=== PATIENT | male | born 1955 | race Caucasian/White ===

== ENCOUNTER 2019-07-13 15:17 | Emergency (ER) | payer OTHER ==
--- NOTE | 2019-07-13 15:33 | ED Physician Documentation ---
Chest Pain - HISTORIAN Historian: patient - HPI Stated Complaint: chest pain Chief Complaint: Chest Pain Additional Information: Patient presents to ED with sudden onset of chest pain after pulling on tie-down strap. Patient states he broke a tie-down strap holding down a cookie breaker because it would not come loose. After breaking the strap he began to have chest pain across his chest, 6/10, dullache, radiating down both arms. He states the pain last about 15-20 minutes and resolved without intervention. He states the pain returned about an hour later so he came to the ER. He is now chest pain free. He denies shortness of breath, nausea/vomiting or diaphoresis. He has a history of COPD, smoking and ascending aortic aneurysm (currently under surveillance, last CT scan May 2019). He also reports his voice has been raspy and deep for the past 2 months. Onset: hours (2) Timing: sudden onset Duration: waxing, waning Last known Well Date: 07/13/19 Last Known Well Time: 14:00 Context: exertion Severity: moderate Quality: dull, aching Chest Pain Radiation: arms Chest Pain Signs/Symptoms: denies: nausea, vomiting, diaphoresis, dizziness Worsened By: nothing Relieved By: nothing - ROS CONST: none MS/LYMPH: none GI/: none EYES/ENT: none SKIN/ENDO: none NEURO/PSYCH: none - PAST HX [place] risk factors: hypertension, other (aortic aneurysm ) DVT/PE Risk Factors: none TAD/AAA risk factors: none Neuro deficit: none GI disease: none Lung disease: COPD Surgeries/Procedures: none Allergies/Adverse Reactions: Allergies Allergy/AdvReac Type Severity Reaction Status Date / Time Penicillins Allergy Severe edema Verified 07/13/19 15:35 propoxyphene napsylate Allergy Severe hypertensive Verified 07/13/19 15:35 [From Darvocet-N 100] crisis amoxicillin Allergy Verified 07/13/19 15:35 Home Medications: Ambulatory Orders Medication Instructions Recorded Albuterol Sulfate [Proair Hfa] 8.5 gm IH BID 04/01/13 Atenolol [Tenormin] 25 mg PO DAILY 08/23/15 Gabapentin [Neurontin] 300 mg PO TID 08/23/15 Levofloxacin [Levaquin] 750 mg PO DAILY #5 tablet 07/13/19 - SOCIAL HX Smoking History: cigarettes, greater than 1 pack/day Alcohol Use: none Drug Use: none - FAMILY HX Family HX: none - VITAL SIGNS Vital Signs: Vital Signs Temp Pulse Resp BP Pulse Ox 135/81 08/23/15 19:42 - REVIEWED ASSESSMENTS Nursing Assessment Reviewed: Yes Vitals Reviewed: Yes Progress - EKG/XRAY/CT EKG: NSR (1528 normal sinus rhythm [address] elevation) ED Results Lab/Radiology - Radiology Radiology Impressions: Report Submission Date: Jul 13, 2019 4:37:30 PM CDT Patient Study Name: MARKOS ENRIQUEZ Date: Jul 13, 2019 3:25:11 PM CDT Modality Type: DX Gender: M Description: CHEST 1VIEW : 55 Institution: [facility] Physician: QUINCY MCCALL Exam: AP chest. History: Chest pain. No previous studies are available for comparison. Lung hernandez are well aerated without alesha consolidation or effusion. Right basilar infiltrates are noted. No pleural effusions are seen. Heart and mediastinal contour are normal. Impression: Right basilar infiltrate. Electronically signed on Jul 13, 2019 4:37:30 PM CDT by: Luis A Mullins - Orders Orders: ED Orders Category Date Time Status CHEST 1VIEW [RAD] Stat Exams 07/13/19 Ordered CBC/PLATELET/DIFF Stat Lab 07/13/19 15:29 Uncollected CMP [CMP] Stat Lab 07/13/19 15:30 Uncollected TROPONIN I Stat Lab 07/13/19 Uncollected Chest Pain Physical Exam - EXAM General Appearance: no acute distress, alert EENT: STERLING Neck: nml inspection Respiratory: no resp. distress, chest non-tender, wheezes (scattered occasional wheeze bilaterally) CVS: reg. rate & rhythm, no murmur Abdomen: soft, normal bowel sounds Skin: warm/dry, normal color Extremities: non-tender, normal range of motion, no evidence of injury Neuro: oriented X3, CN's nml as tested, motor nml, mood/affect nml Discharge Clincal Impression: Right lower lobe pneumonia Qualifiers: Pneumonia type: due to other aerobic Gram-negative bacteria Qualified Code(s): J15.6 - Pneumonia due to other Gram-negative bacteria Prescriptions: Levofloxacin [Levaquin] 750 mg PO DAILY #5 tablet Referrals: Jalen Calles [Primary Care Provider] - 2 Days Additional Instructions: 1. Take antibiotics until gone. 2. Follow up with PCP within 1 week. Repeat chest xray, check kidney function. Discuss CT Neck to evaluate voice changes. 3. Smoking cessation is recommended 4. Return to the ER for new or worsening symptoms Condition: Stable Disposition: 01 HOME, SELF-CARE Decision to Admit: NO Date of Decison to Admit: 07/13/19 Decision Time: 16:47
[2019-07-13 15:45] LABS: NEUTROPHILS # 8.6 # k/uL (1.4-7.7)
[2019-07-13 15:57] LABS: eGFR (Non-African) 51
--- NOTE | 2019-07-13 16:53 | Diagnostic Imaging Report ---
QUINCY MCCALL [facility] [address] [facility].[address] [id number] Report Submission Date: Jul 13, 2019 4:37:30 PM CDT Patient Study Name: MARKOS ENRIQUEZ Date: Jul 13, 2019 3:25:11 PM CDT Modality Type: DX Gender: M Description: CHEST 1VIEW : 55 Institution: [facility] Physician: QUINCY MCCALL Exam: AP chest. History: Chest pain. No previous studies are available for comparison. Lung hernandez are well aerated without alesha consolidation or effusion. Right basilar infiltrates are noted. No pleural effusions are seen. Heart and mediastinal contour are normal. Impression: Right basilar infiltrate. Electronically signed on Jul 13, 2019 4:37:30 PM CDT by: Luis A SCHREIBER
[2019-07-13 17:21] VITALS: BP 137/82
== END 2019-07-13 17:00 | disposition home or self-care (01) ==
LOC: ED 15:17
DX: J15.8 Pneumonia due to other specified bacteria (principal)
CPT/HCPCS: 71045; 80053; 82550; 82553; 83880; 84484; 85025; 99282; S1016